=== PATIENT | female | born 1940 | race Caucasian/White ===

== ENCOUNTER 2022-10-20 14:14 | Observation (INO) | payer OTHER ==
[2022-10-20] MEDS ORDERED: METOCLOPRAMIDE HCL INJECTION 10 MG/2 ML VIAL IVPB ONE (15:03)
[2022-10-20] MEDS ORDERED: ACETAMINOPHEN 1000 MG/100 ML BAG IVPB ONE (15:03)
[2022-10-20] MEDS ORDERED: FAMOTIDINE 20 MG/50 ML IVPB 20 MG/50 ML MG IVPB ONE ×2 (15:03→15:15)
[2022-10-20] MEDS ORDERED: ACETAMINOPHEN INJECTION 100 ML IVPB ONE (15:14)
[2022-10-20] MEDS ORDERED: METOCLOPRAMIDE HCL INJECTION 10 MG/2 ML VIAL ONE (15:14)
[2022-10-20 15:22] LABS: BASO % 0.6 % (0-2.0); EOS % 0.7 % (0-4.5); HEMOGLOBIN 13.6 GM/dL (10.7-15.3); LYMPH % 17.6 % (8-40); MCH 29.7 pg (25.7-33.7); MCHC 34.8 g/dl (32.0-36.0); MEAN CELL VOLUME 85.3 fl (80-96); MEAN PLT VOLUME 8.4 fl (7.5-11.1); MONO % 8.6 % (3.8-10.2); NEUT % 72.5 % (42.8-82.8); PLATELET COUNT 301 10^3/uL (134-434); RBC 4.57 M/mm3 (3.60-5.2); RDW 14.7 % (11.6-15.6); WHITE BLOOD COUNT 8.6 K/mm3 (4.0-10.0)
[2022-10-20 15:43] LABS: BLOOD UREA NITROGEN 13.1 mg/dL (7-18); CALCIUM 9.2 mg/dL (8.5-10.1); MAGNESIUM 2.3 mg/dL (1.8-2.4)
[2022-10-20 15:44] LABS: ALBUMIN 4.2 g/dl (3.4-5.0)
[2022-10-20 15:46] LABS: CREATININE 0.7 mg/dL (0.55-1.3)
[2022-10-20 15:48] LABS: BILIRUBIN,TOTAL 0.3 mg/dL (0.2-1); TOT PROT 7.6 g/dl (6.4-8.2)
[2022-10-20 18:17] LABS: EPI CELLS 5 /uL (0-25.1); HYALINE CASTS 0 /uL (0-3.1); PH,URINE 6.5 (5.0-8.0); URINE APPEARANCE CLEAR; URINE BACTERIA 1 /uL (0-1359); URINE BILIRUBIN NEGATIVE (NEGATIVE); URINE COLOR YELLOW; URINE GLUCOSE (UA) NEGATIVE (NEGATIVE); URINE KETONE TRACE (NEGATIVE); URINE LEUK ESTERASE NEGATIVE (NEGATIVE); URINE NITRITE NEGATIVE (NEGATIVE); URINE PROTEIN NEGATIVE (NEGATIVE); URINE RBC 80 /uL (0-23.9); URINE UROBILINOGEN 0.2 mg/dL (0.2-1.0); URINE WBC 11 /uL (0-25.8)
[2022-10-20] MEDS ORDERED: ACETAMINOPHEN 1000 MG/100 ML BAG IVPB PRN (23:20)
[2022-10-21 03:59] VITALS: BMI 24.9
[2022-10-21 07:55] LABS: BASO % 0.6 % (0-2.0); EOS % 1.1 % (0-4.5); HEMATOCRIT 37.2 % (32.4-45.2); HEMOGLOBIN 12.9 GM/dL (10.7-15.3); LYMPH % 20.5 % (8-40); MCH 29.7 pg (25.7-33.7); MCHC 34.8 g/dl (32.0-36.0); MEAN CELL VOLUME 85.3 fl (80-96); MEAN PLT VOLUME 8.3 fl (7.5-11.1); MONO % 10.8 % (3.8-10.2); PLATELET COUNT 294 10^3/uL (134-434); RBC 4.36 M/mm3 (3.60-5.2); RDW 14.6 % (11.6-15.6); WHITE BLOOD COUNT 6.7 K/mm3 (4.0-10.0)
[2022-10-21 08:00] LABS: CALCIUM 8.6 mg/dL (8.5-10.1)
[2022-10-21 08:01] LABS: ALBUMIN 3.6 g/dl (3.4-5.0); BLOOD UREA NITROGEN 10.4 mg/dL (7-18); MAGNESIUM 2.2 mg/dL (1.8-2.4)
[2022-10-21 08:03] LABS: CREATININE 0.7 mg/dL (0.55-1.3)
[2022-10-21 08:05] LABS: BILIRUBIN,TOTAL 0.4 mg/dL (0.2-1); TOT PROT 6.8 g/dl (6.4-8.2)
[2022-10-21] MEDS: PANTOPRAZOLE 40 MG TABLET PO SCH (09:44)
[2022-10-21] MEDS: LOSARTAN POTASSIUM 50 MG TABLET PO SCH (09:44)
[2022-10-21] MEDS: ASPIRIN 81 MG CHEWABLE TABLETS PO SCH (09:44)
[2022-10-21] MEDS: ACETAMINOPHEN 325 MG TABLET (FP) PO PRN ×2 (11:13→21:33)
[2022-10-21] MEDS: amLODIPine BESYLATE 5 MG TABLET (FP) PO SCH (15:32)
[2022-10-21] MEDS: ATORVASTATIN CA 40 MG TABLET (FP) PO SCH (21:28)
[2022-10-22] MEDS: amLODIPine BESYLATE 5 MG TABLET (FP) PO SCH (09:30)
[2022-10-22] MEDS: LOSARTAN POTASSIUM 50 MG TABLET PO SCH (09:30)
[2022-10-22] MEDS: PANTOPRAZOLE 40 MG TABLET PO SCH (09:30)
[2022-10-22] MEDS: ASPIRIN 81 MG CHEWABLE TABLETS PO SCH (09:30)
[2022-10-22] MEDS: NEBIVOLOL 5 MG TABLET (FP) PO SCH (09:32)
[2022-10-22] MEDS: ACETAMINOPHEN 325 MG TABLET (FP) PO PRN (21:40)
[2022-10-22] MEDS: ATORVASTATIN CA 40 MG TABLET (FP) PO SCH (21:40)
[2022-10-23 06:39] VITALS: RESP 18
[2022-10-23] MEDS: ACETAMINOPHEN 325 MG TABLET (FP) PO PRN (09:21)
[2022-10-23] MEDS: LOSARTAN POTASSIUM 50 MG TABLET PO SCH (09:22)
[2022-10-23] MEDS: ASPIRIN 81 MG CHEWABLE TABLETS PO SCH (09:22)
[2022-10-23] MEDS: amLODIPine BESYLATE 5 MG TABLET (FP) PO SCH (09:22)
[2022-10-23] MEDS: NEBIVOLOL 5 MG TABLET (FP) PO SCH (09:22)
[2022-10-23 14:00] VITALS: BP 140/74; PULSE 60; TEMP 98.4
== END 2022-10-23 18:07 | disposition home or self-care (01) ==
LOC: JER 14:14 → JERBED 20:21 → J4W 10-21 00:18
PROVIDERS: ADMIT Internal Medicine; ATTEND Family Medicine
PROC: 3E033NZ Introduction of Analgesics, Hypnotics, Sedatives into Peripheral Vein, Percutaneous Approach (ICD-10-PCS; principal; 2022-10-20)
PROC: 3E033GC Introduction of Other Therapeutic Substance into Peripheral Vein, Percutaneous Approach (ICD-10-PCS; 2022-10-20)
DX: I24.9 Acute ischemic heart disease, unspecified (principal); R51.9 Headache, unspecified; R10.13 Epigastric pain; I10 Essential (primary) hypertension
CPT/HCPCS: 0241U-QW; 36415; 70450-TC; 71046-TC-FY; 76705-TC; 80053; 80061; 81003; 82550; 83605; 83690; 83735; 84443; 84484; 85025; 86140; 87086; 87209; 93005; 93010; 93306-TC; 96365; 96375; 99285-25; G0378

== ENCOUNTER 2022-12-20 12:34 | Emergency (ER) | payer OTHER ==
[2022-12-20 12:48] VITALS: BP 132/61; PULSE 63; RESP 16; TEMP 97.8; BMI 30.8
[2022-12-20] MEDS ORDERED: ACETAMINOPHEN 325 MG TABLET (FP) PO ONE (13:41)
[2022-12-20] MEDS ORDERED: IBUPROFEN 400 MG TABLET (FP) PO ONE ×2 (13:41→14:06)
[2022-12-20] MEDS ORDERED: LIDOCAINE 5% TOPICAL PATCH TP ONE (13:53)
[2022-12-20] MEDS ORDERED: ACETAMINOPHEN 325 MG TABLET (FP) ONE (14:05)
[2022-12-20] MEDS ORDERED: LIDOCAINE 5% TOPICAL PATCH ONE (14:06)
== END 2022-12-20 19:17 | disposition home or self-care (01) ==
LOC: JER 12:34
DX: M25.552 Pain in left hip (principal); M79.605 Pain in left leg; R53.1 Weakness; M54.50 Low back pain, unspecified
CPT/HCPCS: 72100-TC-FY; 72192-TC; 73502-TC-LT-FY; 99284-25

== ENCOUNTER 2023-01-15 05:01 | Day surgery (SDC) | payer OTHER ==
[2023-01-14 10:01] VITALS: BMI 25.7
[2023-01-15 10:47] VITALS: RESP 18
[2023-01-15] MEDS ORDERED: DEXAMETHASONE SOD PHOSPHATE 10 MG/1 ML VIAL ONE (11:11)
[2023-01-15] MEDS ORDERED: LIDOCAINE HCL 1% PRESERVATIVE FREE - 30ML VIAL IJ ONE (11:15)
[2023-01-15] MEDS ORDERED: IOHEXOL 180 MG/1 ML ML IJ ONE ×3 (11:15)
[2023-01-15 14:48] VITALS: BP 130/68; PULSE 62; TEMP 98.2
[2023-01-15] MEDS ORDERED: ACETAMINOPHEN 500 MG TABLET (FP) PO PRN (15:57)
== END 2023-01-15 12:55 | disposition home or self-care (01) ==
LOC: JASU-SURG 05:01
PROVIDERS: ATTEND Pain Medicine Pain Medicine
PROC: 3E0R3BZ Introduction of Anesthetic Agent into Spinal Canal, Percutaneous Approach (ICD-10-PCS; 2023-01-15)
PROC: 3E0R33Z Introduction of Anti-inflammatory into Spinal Canal, Percutaneous Approach (ICD-10-PCS; principal; 2023-01-15 12:45)
DX: M54.16 Radiculopathy, lumbar region (principal)
CPT/HCPCS: 76000-TC-FY; J1100

== ENCOUNTER 2023-02-05 04:15 | Day surgery (SDC) | payer OTHER ==
[2023-01-31 15:09] VITALS: BMI 25.8
[2023-02-05] MEDS ORDERED: ACETAMINOPHEN 500 MG TABLET (FP) PO PRN (11:26)
[2023-02-05] MEDS ORDERED: LIDOCAINE HCL 1% PRESERVATIVE FREE - 30ML VIAL IJ ONE (13:21)
[2023-02-05] MEDS ORDERED: IOHEXOL 180 MG/1 ML ML IJ ONE (13:22)
[2023-02-05] MEDS ORDERED: BUPIVACAINE HCL/PF 0.5% (5MG/ML) 10 ML VIAL IJ ONE (13:25)
[2023-02-05] MEDS ORDERED: TRIAMCINOLONE ACET 40MG/1ML VIAL IM ONE (13:26)
[2023-02-05 15:42] VITALS: BP 130/65; PULSE 72; RESP 20; TEMP 97.2
== END 2023-02-05 14:37 | disposition home or self-care (01) ==
LOC: JASU-SURG 04:15
PROVIDERS: ATTEND Pain Medicine Pain Medicine
PROC: 3E0U3BZ Introduction of Anesthetic Agent into Joints, Percutaneous Approach (ICD-10-PCS; 2023-02-05)
PROC: 3E0U33Z Introduction of Anti-inflammatory into Joints, Percutaneous Approach (ICD-10-PCS; principal; 2023-02-05 13:45)
DX: M16.12 Unilateral primary osteoarthritis, left hip (principal)
CPT/HCPCS: 76000-TC-FY

== ENCOUNTER 2023-04-02 10:58 | Observation (INO) | payer OTHER ==
[2023-04-02] MEDS ORDERED: ACETAMINOPHEN 1000 MG/100 ML BAG IVPB ONE (13:16)
[2023-04-02] MEDS ORDERED: KETOROLAC TROMETHAMINE 30 MG/1 ML VIAL IVPUSH ONE (13:16)
[2023-04-02] MEDS ORDERED: LIDOCAINE 5% TOPICAL PATCH TP ONE (13:18)
[2023-04-02] MEDS ORDERED: KETOROLAC TROMETHAMINE 30 MG/1 ML VIAL ONE (13:25)
[2023-04-02] MEDS ORDERED: ACETAMINOPHEN INJECTION 100 ML IVPB ONE (13:25)
[2023-04-02 15:56] LABS: BASO % 0.5 % (0-2.0); EOS % 1.8 % (0-4.5); HEMATOCRIT 39.8 % (32.4-45.2); HEMOGLOBIN 13.8 GM/dL (10.7-15.3); LYMPH % 23.8 % (8-40); MCH 29.9 pg (25.7-33.7); MCHC 34.7 g/dl (32.0-36.0); MEAN CELL VOLUME 86.2 fl (80-96); MEAN PLT VOLUME 7.7 fl (7.5-11.1); MONO % 7.2 % (3.8-10.2); NEUT % 66.7 % (42.8-82.8); PLATELET COUNT 294 10^3/uL (134-434); RBC 4.62 M/mm3 (3.60-5.2); RDW 14.1 % (11.6-15.6); WHITE BLOOD COUNT 8.9 K/mm3 (4.0-10.0)
[2023-04-02 16:23] LABS: POTASSIUM 4.1 mmol/L (3.5-5.1)
[2023-04-02 16:25] LABS: ALBUMIN 4.1 g/dl (3.4-5.0); CALCIUM 9.3 mg/dL (8.5-10.1)
[2023-04-02 16:26] LABS: BLOOD UREA NITROGEN 18.1 mg/dL (7-18)
[2023-04-02 16:28] LABS: CREATININE 1.1 mg/dL (0.55-1.3)
[2023-04-02 16:30] LABS: BILIRUBIN,TOTAL 0.3 mg/dL (0.2-1); TOT PROT 7.6 g/dl (6.4-8.2)
[2023-04-02] MEDS ORDERED: DOCUSATE SODIUM 100 MG CAPSULE (FP) PO PRN (19:30)
[2023-04-02] MEDS ORDERED: ACETAMINOPHEN 1000 MG/100 ML BAG IVPB PRN (19:34)
[2023-04-02] MEDS ORDERED: KETOROLAC TROMETHAMINE 15 MG/ML VIAL ONE (21:31)
[2023-04-02] MEDS: KETOROLAC TROMETHAMINE 15 MG/ML VIAL IVPUSH PRN (21:44)
[2023-04-02] MEDS: LIDOCAINE PATCH REMOVAL MC SCH (22:01)
[2023-04-03 00:50] VITALS: RESP 18; BMI 26.9
[2023-04-03 09:10] LABS: BASO % 0.6 % (0-2.0); EOS % 2.8 % (0-4.5); HEMATOCRIT 37.8 % (32.4-45.2); HEMOGLOBIN 12.8 GM/dL (10.7-15.3); LYMPH % 26.4 % (8-40); MCH 29.7 pg (25.7-33.7); MCHC 33.8 g/dl (32.0-36.0); MEAN CELL VOLUME 87.8 fl (80-96); MONO % 9.2 % (3.8-10.2); PLATELET COUNT 284 10^3/uL (134-434); RBC 4.31 M/mm3 (3.60-5.2); RDW 14.1 % (11.6-15.6); WHITE BLOOD COUNT 6.3 K/mm3 (4.0-10.0)
[2023-04-03 09:18] LABS: INR 1.07 (0.83-1.09); PROTHROMBIN TIME (PATIENT) 12.4 SEC (9.7-13.0)
[2023-04-03 09:21] LABS: ACTIVATED PTT 35.1 SECONDS (25.2-36.5)
[2023-04-03 09:41] LABS: POTASSIUM 4.2 mmol/L (3.5-5.1)
[2023-04-03 09:44] LABS: BLOOD UREA NITROGEN 26.1 mg/dL (7-18); MAGNESIUM 2.2 mg/dL (1.8-2.4)
[2023-04-03 09:48] LABS: CREATININE 0.9 mg/dL (0.55-1.3); PHOSPHOROUS 4.2 mg/dL (2.5-4.9)
[2023-04-03] MEDS: GABAPENTIN 100 MG CAPSULE PO SCH ×2 (16:35→22:11)
[2023-04-03] MEDS: KETOROLAC TROMETHAMINE 15 MG/ML VIAL IVPUSH PRN (16:35)
[2023-04-03] MEDS ORDERED: ACETAMINOPHEN 325 MG TABLET (FP) PO PRN (19:30)
[2023-04-03] MEDS: LIDOCAINE PATCH REMOVAL MC SCH (22:11)
[2023-04-04] MEDS: GABAPENTIN 100 MG CAPSULE PO SCH ×2 (05:41→13:11)
[2023-04-04 17:20] VITALS: BP 148/67; PULSE 69; TEMP 98.2
== END 2023-04-04 17:34 | disposition home health service (06) ==
LOC: JER 10:58 → JERBED 15:12 → INTOOBSV 15:12 → J7W 04-03 01:01
PROVIDERS: ADMIT Internal Medicine; ATTEND Family Medicine
PROC: 3E0333Z Introduction of Anti-inflammatory into Peripheral Vein, Percutaneous Approach (ICD-10-PCS; principal; 2023-04-02)
PROC: 3E033GC Introduction of Other Therapeutic Substance into Peripheral Vein, Percutaneous Approach (ICD-10-PCS; 2023-04-02)
DX: M54.16 Radiculopathy, lumbar region (principal); I10 Essential (primary) hypertension; E78.5 Hyperlipidemia, unspecified; M48.061 Spinal stenosis, lumbar region without neurogenic claudication
CPT/HCPCS: 36415; 72148-TC; 80048; 80053; 82962; 83735; 84100; 85025; 85610; 85730; 93005; 93010; 96374; 96375; 96376; 97116-GP; 97161-GP; 99285-25; G0378

== ENCOUNTER 2023-06-07 04:13 | Day surgery (SDC) | payer OTHER ==
[2023-05-17 14:14] VITALS: BMI 30.2
[~2023-06-07 04:13] MED LIST: ACETAMINOPHEN 500 MG TABLET (FP) PO PRN
[2023-06-07] MEDS ORDERED: TRIAMCINOLONE ACET 40MG/1ML VIAL ONE (07:24)
[2023-06-07] MEDS ORDERED: LIDOCAINE HCL/PF 1% SDV 5ML VIAL ONE (07:25)
[2023-06-07] MEDS ORDERED: BUPIVACAINE HCL/PF 0.5% (5MG/ML) 10 ML VIAL ONE (07:25)
[2023-06-07 09:24] VITALS: TEMP 98.5
[2023-06-07] MEDS ORDERED: LIDOCAINE HCL 1% PRESERVATIVE FREE - 30ML VIAL IJ ONE (11:33)
[2023-06-07] MEDS ORDERED: BUPIVACAINE HCL/PF 0.5% (5MG/ML) 10 ML VIAL IJ ONE (11:33)
[2023-06-07] MEDS ORDERED: IOHEXOL 180 MG/1 ML ML IJ ONE (11:33)
[2023-06-07] MEDS ORDERED: TRIAMCINOLONE ACET 40MG/1ML VIAL IM ONE (11:33)
[2023-06-07 11:58] VITALS: BP 142/48; PULSE 56; RESP 20
[2023-06-07] MEDS ORDERED: ACETAMINOPHEN 500 MG TABLET (FP) PO PRN (13:38)
== END 2023-06-07 13:15 | disposition home or self-care (01) ==
LOC: JASU-SURG 04:13
PROVIDERS: ATTEND Pain Medicine Pain Medicine
PROC: 3E0U3BZ Introduction of Anesthetic Agent into Joints, Percutaneous Approach (ICD-10-PCS; 2023-06-07)
PROC: 3E0U33Z Introduction of Anti-inflammatory into Joints, Percutaneous Approach (ICD-10-PCS; principal; 2023-06-07 11:00)
DX: M16.12 Unilateral primary osteoarthritis, left hip (principal)
CPT/HCPCS: 76000-TC-FY